=== PATIENT | female | born 1940 | race Caucasian/White ===

== ENCOUNTER 2016-12-09 09:54 | Emergency (ER) | payer OTHER ==
[2016-12-09 10:07] VITALS: TEMP 98.2; BMI 20.2
--- NOTE | 2016-12-09 10:21 | PDOC ---
History of Present Illness - General Chief Complaint: Hematuria Time Seen by Provider: 12/09/16 09:58 - History of Present Illness Initial Comments: 12/09/16 10:21 76-year-old female with a prior history of kidney stones in 2013 Patient states that she had some left sided abdominal pain in early October and then developed hematuria in mid October She denies any vaginal bleeding, and states that the blood is definitely hematuria and not vaginal bleeding She was seen at [facility], but is unsure what her diagnosis was She did see a urologist, and had a stent placed, but does not know which side the stent is on She states that the stent is supposed to come out tomorrow with the [facility] urologist She states that she has been having hematuria since october, and initially took a week of Bactrim DS, which did not help, and then she was given a prescription for Cipro which she did not take She is complaining of some slight dysuria and some bladder spasms She denies any fevers or chills She denies any vaginal bleeding spotting or discharge She denies any vomiting or diarrhea She states that her left sided abdominal pain is gone She denies any abdominal pain at this time She denies any flank pain She denies any other complaints at this time, and the remainder of the review of systems is negative When questioned further about what studies and procedures she had at [facility], the patient was very vague and states that she wasn't sure Past History - Past Medical History Allergies/Adverse Reactions: Allergies Allergy/AdvReac Type Severity Reaction Status Date / Time trazodone Allergy Verified 12/09/16 09:56 Home Medications: Ambulatory Orders Ciprofloxacin HCl [Cipro] 500 mg PO BID 12/09/16 Famotidine 20 mg PO BID 12/09/16 Lamotrigine [Lamictal] 25 mg PO PRN PRN 12/09/16 Disorders: Yes (RENAL STONE) Psychiatric Problems: Yes (ANXIETY/DEPRESSION) - Psycho/Social/Smoking Cessation Hx Anxiety: Yes (DEPRESSION) Suicidal Ideation: No Smoking History: Never smoked Have you smoked in the past 12 months: No Information on smoking cessation initiated: No Hx Alcohol Use: No Drug/Substance Use Hx: No Substance Use Type: None Review of Systems - Review of Systems Able to Perform ROS?: Yes Comments:: 12/09/16 10:24 12 point review of systems is as per history of present illness and otherwise negative *Physical Exam - Vital Signs Last Vital Signs Temp Pulse Resp BP Pulse Ox 98.2 F 108 H 16 174/92 97 12/09/16 09:56 12/09/16 09:56 12/09/16 09:56 12/09/16 09:56 12/09/16 09:56 - Physical Exam Comments: 12/09/16 10:24 Physical exam Last Vital Signs Temp Pulse Resp BP Pulse Ox 98.2 F 108 H 16 174/92 97 12/09/16 09:56 12/09/16 09:56 12/09/16 09:56 12/09/16 09:56 12/09/16 09:56 GENERAL: The patient is awake, alert, and fully oriented, and in no apparent distress. HEAD: Normal with no signs of trauma. EYES: Sclera anicteric, conjunctiva normal ENT: Mucous membranes moist NECK: Normal range of motion, supple LUNGS: Breath sounds equal, clear to auscultation bilaterally. No wheezes, and no crackles. HEART: Regular rate and rhythm, normal S1 and S2 without murmur, rub or gallop. ABDOMEN: Soft, nontender, normoactive bowel sounds. No guarding, no rebound. No masses appreciated. The abdomen is completely soft and nontender There is a tiny bit of suprapubic pressure feeling on palpation There is no CVA tenderness EXTREMITIES: Normal range of motion, no edema. No clubbing or cyanosis. No cords, erythema, or tenderness. NEUROLOGICAL: Cranial nerves II through XII grossly intact. Normal speech, normal gait. PSYCH: Normal mood, normal affect. SKIN: Warm, Dry, normal turgor, no rashes or lesions noted. ED Treatment Course - LABORATORY CBC & Chemistry Diagram: 12/09/16 10:25 12/09/16 10:25 - RADIOLOGY Radiology Studies Ordered: Category Date Time Status ABDOMEN & PELVIS CT W/O CONTR [CT] Stat CT Scan 12/09/16 10:13 Ordered Medical Decision Making - Medical Decision Making 12/09/16 10:25 76-year-old female who is a vague historian, presents with hematuria, without vaginal bleeding 12/09/16 11:11 Laboratory Results - last 24 hr 01/25/17 01/25/17 01/25/17 10:07 10:25 10:25 WBC 6.3 D RBC 4.79 Hgb 12.6 Hct 39.0 MCV 81.5 MCHC 32.3 RDW 12.6 Plt Count 230 MPV 9.2 Sodium 139 Potassium 3.8 Chloride 105 Carbon Dioxide 28 Anion Gap 6 L BUN 18 D Creatinine 0.7 D Creat Clearance w eGFR > 60 Random Glucose 104 D Calcium 9.2 Total Bilirubin 0.2 D AST 21 ALT 13 Alkaline Phosphatase 57 Total Protein 6.6 Albumin 4.3 Urine Color Red Urine Appearance Bloody Urine pH 5.0 Ur Specific Sunshine 1.015 Urine Protein 3+ H Urine Glucose (UA) Trace Urine Ketones 1+ H Urine Blood 3+ H Urine Nitrite Negative Urine Bilirubin 3+ H Urine Urobilinogen 2.0 e.u/dl H Ur Leukocyte Esterase 3+ H Urine RBC >50 Urine WBC >50 Ur Epithelial Cells Few Amorphous Urates Few Urine Bacteria Many CT scan of the abdomen and pelvis Left-sided stent is noted in good position There are some tiny stone fragments There is a cyst in the lower pole of the right kidney Impression-bilateral nonobstructive nephrolithiasis with small cysts in the kidneys There is good position of the double J left ureteral stent noted 12/09/16 12:[address] Davis-patient's urologist at [phone] He is in the OR and not reachable at this time I spoke to his medical detail representative, and let her know that we gave the patient 1 g of Rocephin IV here in the emergency department I will fax all of today's results to him She is scheduled to come in tomorrow to have the stent removed Dr. Davis will decide at that time whether to continue antibiotics Will give 1 dose of Rocephin IV Patient has an appointment with Dr. Davis tomorrow for stent removal, and he can decide on further antibiotics at that time Urine culture was sent Patient now remembers that Dr. Davis did tell her that she may have blood in her urine as long as the stent is in Vital Signs - 24 hr 12/09/16 12/09/16 09:56 11:47 Temperature 98.2 F Pulse Rate 108 H Pulse Rate [ 73 Apical] Respiratory 16 18 Rate Blood Pressure 174/92 Blood Pressure 138/82 [Arm] O2 Sat by Pulse 97 97 Oximetry (%) Impression-hematuria with stent in place Patient has appointment for removal of stent tomorrow *DC/Admit/Observation/Transfer Diagnosis at time of Disposition: Hematuria - Discharge Dispostion Disposition: HOME Condition at time of disposition: Good - Patient Instructions Additional Instructions: Rest, increase fluid intake You got 1 dose of IV antibiotics here in the emergency department today We faxed all of your results to Dr. Grant's office Please keep your appointment with Dr. Davis in the office tomorrow for stent removal Dr. Davis will decide whether to give you further antibiotics Followup with your primary care physician in 24-48 hours Return immediately if you worsen in any way Take your medications as directed
[2016-12-09 10:29] LABS: URINE BILIRUBIN 3+ (NEGATIVE); URINE GLUCOSE (UA) Trace (NEGATIVE); URINE KETONE 1+ (NEGATIVE); URINE NITRITE Negative (NEGATIVE); URINE UROBILINOGEN 2.0 E.U/dl (0.2-1.0)
[2016-12-09 10:37] LABS: URINE APPEARANCE BLOODY; URINE BLOOD 3+ (NEGATIVE); URINE COLOR RED; URINE LEUK ESTERASE 3+ (NEGATIVE); URINE PROTEIN 3+ (NEGATIVE)
[2016-12-09 10:38] LABS: MCH 26.3 pg (25.7-33.7); MCHC 32.3 g/dl (32.0-36.0); MEAN CELL VOLUME 81.5 fl (80-96); MEAN PLT VOLUME 9.2 fl (7.5-11.1); PLATELET COUNT 230 K/MM3 (134-434); RDW 12.6 % (11.6-15.6); WHITE BLOOD COUNT 6.3 K/mm3 (4.0-10.0)
[2016-12-09 10:43] LABS: URINE RBC >50 /hpf (0-3)
[2016-12-09 10:44] LABS: URINE BACTERIA MANY /hpf (NEGATIVE); URINE WBC >50 (3-5)
[2016-12-09 10:48] LABS: ALBUMIN 4.3 g/dl (3.5-5.0); ALK PHOS 57 U/L (32-92); ANION GAP 6 (8-16); BILIRUBIN,TOTAL 0.2 mg/dl (0.2-1.0); CALCIUM 9.2 mg/dl (8.4-10.2); CO2 28 mmol/L (22-28); CREATININE 0.7 mg/dl (0.6-1.3); GLUCOSE,RANDOM 104 mg/dl (74-106); SGOT/AST 21 U/L (10-42); SGPT/ALT 13 U/L (10-40); TOT PROT 6.6 g/dl (6.4-8.3)
[2016-12-09 11:48] VITALS: BP 138/82; PULSE 73
[2016-12-09] MEDS ORDERED: CEFTRIAXONE 1 GM in DEXTROSE 5%-WATER - 50 ML IVPB ONE (12:35)
[2016-12-09] MEDS ORDERED: cefTRIAXone SODIUM 1 GM VIAL ONE (12:35)
== END 2016-12-09 13:40 | disposition home or self-care (01) ==
LOC: FER 09:54
DX: R31.9 Hematuria, unspecified (principal); F41.8 Other specified anxiety disorders; Z87.442 Personal history of urinary calculi
CPT/HCPCS: 36415; 74176-TC; 80053; 81003; 81015; 85027; 87086; 96365; 99282-25

== ENCOUNTER 2018-01-22 00:55 | Emergency (ER) | payer OTHER, MEDICARE ==
[2018-01-22 01:05] VITALS: BP 159/80; PULSE 98; TEMP 98.6; BMI 18.8
--- NOTE | 2018-01-22 01:21 | PDOC ---
History of Present Illness - General Chief Complaint: Ingestion Stated Complaint: INGESTED WRONG MED CREAM Time Seen by Provider: 01/22/18 01:00 - History of Present Illness Initial Comments: This 77-year-old woman with a history of depression and leukoplakia oral mucous membranes but no other significant past medical history presents BIBA after accidentally ingesting small amount of mupirocin cream. The patient applies clobetasol gel to the leukoplakia in her mouth prior to going to bed at night. 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 The patient states that she rinsed her mouth immediately but thought that there was a red rash around her mouth afterwards. She states that she "panicked" and called EMS after she read warnings about rash development after mupirocin use. She denies throat pain, difficulty swallowing, bleeding, sensation of foreign body in her throat. She is able to speak without difficulty and has no hypersalivation/drooling. She denies shortness of breath/wheezing or any other rash currently Past History - Past Medical History Allergies/Adverse Reactions: Allergies Allergy/AdvReac Type Severity Reaction Status Date / Time trazodone Allergy Verified 01/22/18 00:58 Home Medications: Ambulatory Orders Mupirocin 15 gm TP PRN 01/22/18 COPD: No Psychiatric Problems: Yes - Suicide/Smoking/Psychosocial Hx Smoking History: Never smoked Have you smoked in the past 12 months: No Hx Alcohol Use: No Drug/Substance Use Hx: No Substance Use Type: None Review of Systems - Review of Systems Able to Perform ROS?: Yes Comments:: 12 point review of systems is negative except for what is noted in the history of present illness *Physical Exam - Vital Signs Last Vital Signs Temp Pulse Resp BP Pulse Ox 98.6 F 98 H 18 159/80 98 01/22/18 01:00 01/22/18 01:00 01/22/18 01:00 01/22/18 01:00 01/22/18 01:00 - Physical Exam Comments: GENERAL: Elderly female, alert and oriented 3, appearing nervous but in no acute distress HEAD: Normal with no signs of trauma. EYES: PERRLA, EOMI, sclera anicteric, conjunctiva clear. ENT: Ears normal, nares patent, oropharynx clear without exudates. Moist mucous membranes. No oral cavity ulcerations/lacerations/abrasions or other evidence of acute injury NECK: Normal range of motion, supple without lymphadenopathy, JVD, or masses. LUNGS: Breath sounds equal, clear to auscultation bilaterally. No wheezes, and no crackles. HEART:Regular rate and rhythm, normal S1 and S2 without murmur, rub or gallop. SKIN: Warm, Dry, normal turgor, no rashes or lesions noted. Medical Decision Making - Medical Decision Making This 77-year-old woman presents after accidentally ingesting a small amount of mupirocin cream just prior to presentation. Exam is normal without evidence of any irritation/injury to her mouth/oropharynx. The patient was able to drink 8 ounces of water without difficulty; she had no subsequent nausea or abdominal discomfort. Patient will be discharged with instructions to drink plenty of water and eat normally tomorrow. She should return if she notices any discomfort in her throat or subsequent nausea/abdominal discomfort. Her follow-up should be with her PMD as scheduled *DC/Admit/Observation/Transfer Diagnosis at time of Disposition: Accidental drug ingestion Qualifiers: Encounter type: initial encounter Qualified Code(s): T50.901A - Poisoning by unspecified drugs, medicaments and biological substances, accidental ( unintentional), initial encounter - Discharge Dispostion Disposition: HOME Condition at time of disposition: Stable - Referrals - Patient Instructions Printed Discharge Instructions: DI for Accidental Ingestion -- Adult Additional Instructions: continue to drink plenty of fluids Return to ER if you have any discomfort/irritation in your mouth or throat Follow-up with your doctor as scheduled - Post Discharge Activity
== END 2018-01-22 01:27 | disposition home or self-care (01) ==
LOC: FER 00:55
DX: T50.901A Poisoning by unspecified drugs, medicaments and biological substances, accidental (unintentional), initial encounter (principal); F32.9 Major depressive disorder, single episode, unspecified; K13.21 Leukoplakia of oral mucosa, including tongue
CPT/HCPCS: 99282-25

== ENCOUNTER 2019-01-18 03:56 | Emergency (ER) | payer OTHER, MEDICARE ==
[2019-01-18 04:06] VITALS: PULSE 100; TEMP 97.7; BMI 21.2
--- NOTE | 2019-01-18 04:07 | PDOC ---
History of Present Illness - General Chief Complaint: Pain, Acute Stated Complaint: FELT SOMETHING POP IN HER HEAD, C/O SORENESS VOMIT Time Seen by Provider: 01/18/19 04:02 History Source: Patient Exam Limitations: No Limitations - History of Present Illness Initial Comments: 01/18/19 04:07 This is a 78-year-old female brought in by EMS for evaluation of a sensation that something popped in her head and that she was nauseous had some vomiting and diarrhea. Patient said symptoms have all now resolved. Patient denies any headache, shortness of breath, nausea, fevers or chills, neck stiffness or any other complaints. Patient is otherwise healthy and takes no medications. Allergies: None Past Medical History: none Social history: Lives with family. No smoking. No alcohol. No illicit drugs. Surgical history: None General: No fevers or chills, no weakness, no weight loss HEENT: No change in vision. No sore throat,. No ear pain CardioVascular: no chest discomfort. No shortness of breath Respiratory:No cough, or wheezing. Gastrointestinal: + nausea, +vomited X1, +diarrhea no constipation, No rectal bleeding Genitourinary: No dysuria, hematuria, or frequency Musculoskeletal: No joint or muscle pain or swelling Neurologic: No headache, vertigo, dizziness or loss of consciousness Psychiatric: nor depression Skin: No rashes or easy bruising Endocrine: no increased thirst or abnormal weight change Allergic: no skin or latex allergy All other systems reviewed and normal Exam: General: Well-nourished well-developed individual, no acute distress HEENT: Throat: Normal, tonsils normal, no erythema or exudate Neck: Supple, no meningeal signs, no lymphadenopathy Eyes::Pupils equal reactive and round, extraocular motion intact Chest: Nontender to palpation Cardiac: S1-S2 normal, regular rate and rhythm, no murmurs rubs or gallops Respiratory: Lungs clear to auscultation bilateral Abdomen: Soft, nondistended, normal bowel sounds, there is no tenderness on palpation diffusely Extremities: Warm, dry, no cyanosis, clubbing, or edema Skin: No rashes Neuro: Alert and oriented x3, CN II - XII intact, nonfocal exam with normal strength, normal sensation, normal reflexes, normal gait, Psych: Normal mood and affect 01/18/19 05:23 CAT scan negative for any acute pathology patient discharged home Past History - Past Medical History Allergies/Adverse Reactions: Allergies Allergy/AdvReac Type Severity Reaction Status Date / Time trazodone Allergy Verified 01/22/18 00:58 Home Medications: Ambulatory Orders NK [No Known Home Medication] 01/18/19 COPD: No Psychiatric Problems: Yes - Suicide/Smoking/Psychosocial Hx Smoking History: Never smoked Have you smoked in the past 12 months: No Hx Alcohol Use: No Drug/Substance Use Hx: No Substance Use Type: None *DC/Admit/Observation/Transfer Diagnosis at time of Disposition: Headache Qualifiers: Headache type: unspecified Headache chronicity pattern: acute headache Intractability: not intractable Qualified Code(s): R51 - Headache - Discharge Dispostion Disposition: HOME Condition at time of disposition: Stable Decision to Admit order: No - Referrals - Patient Instructions Additional Instructions: Return to the emergency department immediately with ANY new, persistent or worsening symptoms. Continue any medications as previously prescribed by your physician. You should follow up with your primary doctor as soon as possible regarding today's emergency department visit. . Please make sure your doctor reviews the results of your emergency evaluation. Thank you for coming to the Emergency Department today for your care. It was a pleasure to see you today. Please note that your evaluation is INCOMPLETE until you follow-up with your doctor. - Post Discharge Activity
[2019-01-18 05:27] VITALS: BP 170/88
== END 2019-01-18 05:28 | disposition home or self-care (01) ==
LOC: FER 03:56
DX: R51 Headache (principal); F99 Mental disorder, not otherwise specified
CPT/HCPCS: 70450-TC; 99281-25

== ENCOUNTER 2019-01-29 22:59 | Emergency (ER) | payer OTHER, MEDICARE ==
[2019-01-29 23:12] VITALS: BP 158/75; PULSE 102; TEMP 98.2; BMI 22.1
--- NOTE | 2019-01-29 23:16 | PDOC ---
History of Present Illness - General Chief Complaint: Redness To Affected Area Stated Complaint: REACTION TO MEDICATION Time Seen by Provider: 01/29/19 23:13 History Source: Patient Exam Limitations: No Limitations - History of Present Illness Initial Comments: 01/29/19 23:16 This is a 78-year-old female who comes in concerned that she may have blood poisoning. Patient was on an antibiotic and she thinks her legs are red and they feel a little bit warmer than usual. Patient denies any fevers or chills. Patient denies any increase in discomfort or pain. Patient denies any swelling or itching of the area. Patient otherwise can go see her doctor in a few hours from her doctor's office opens. Allergies: None Past Medical History: none Social history: Lives with family. No smoking. No alcohol. No illicit drugs. Surgical history: None General: No fevers or chills, no weakness, no weight loss HEENT: No change in vision. No sore throat,. No ear pain CardioVascular: no chest discomfort. No shortness of breath Respiratory:No cough, or wheezing. Gastrointestinal: no nausea, vomiting, diarrhea or constipation, No rectal bleeding Genitourinary: No dysuria, hematuria, or frequency Musculoskeletal: No joint or muscle pain or swelling Neurologic: No headache, vertigo, dizziness or loss of consciousness Psychiatric: nor depression Skin: No rashes or easy bruising, as per history of present illness Endocrine: no increased thirst or abnormal weight change Allergic: no skin or latex allergy All other systems reviewed and normal GENERAL: The patient is awake, alert, and fully oriented, in no acute distress. HEAD: Normal with no signs of trauma. EYES: Pupils equal, round and reactive to light, extraocular movements intact, sclera anicteric, conjunctiva clear. EXTREMITIES:atraumatic, Normal range of motion, no edema. NEUROLOGICAL: Normal speech, normal gait. PSYCH: Normal mood, normal affect. SKIN: Warm, Dry, normal turgor, no rashes or lesions noted. There is no increase in warmth or erythema than I'm able to discern. There is no tenderness on palpation. The extremities look normal to me. Past History - Past Medical History Allergies/Adverse Reactions: Allergies Allergy/AdvReac Type Severity Reaction Status Date / Time trazodone Allergy Verified 01/29/19 23:06 Home Medications: Ambulatory Orders NK [No Known Home Medication] 01/18/19 COPD: No HTN: Yes Psychiatric Problems: Yes (DEPRESSION) - Suicide/Smoking/Psychosocial Hx Smoking History: Never smoked Have you smoked in the past 12 months: No Information on smoking cessation initiated: No Hx Alcohol Use: No Drug/Substance Use Hx: No Substance Use Type: None *Physical Exam - Vital Signs Last Vital Signs Temp Pulse Resp BP Pulse Ox 98.2 F 102 H 16 158/75 99 01/29/19 23:08 01/29/19 23:08 01/29/19 23:08 01/29/19 23:08 01/29/19 23:08 Moderate Sedation - Procedure Monitoring Vital Signs: Procedure Monitoring Vital Signs Temperature 98.2 F 01/29/19 23:08 Pulse Rate 102 H 01/29/19 23:08 Respiratory Rate 16 01/29/19 23:08 Blood Pressure 158/75 01/29/19 23:08 O2 Sat by Pulse Oximetry (%) 99 01/29/19 23:08 *DC/Admit/Observation/Transfer Diagnosis at time of Disposition: Anxiety about health - Discharge Dispostion Disposition: HOME Condition at time of disposition: Stable Decision to Admit order: No - Referrals - Patient Instructions Additional Instructions: I see no indication tonight that there is anything to be concerned about regarding your legs and the redness that you perceive. Call your doctor's office in the morning and go see her doctor in the morning and have your doctor reevaluate you if you are still concerned. Return to the emergency department immediately with ANY new, persistent or worsening symptoms. Continue any medications as previously prescribed by your physician. You should follow up with your primary doctor as soon as possible regarding today's emergency department visit. . Please make sure your doctor reviews the results of your emergency evaluation. Thank you for coming to the Emergency Department today for your care. It was a pleasure to see you today. Please note that your evaluation is INCOMPLETE until you follow-up with your doctor. - Post Discharge Activity
== END 2019-01-29 23:24 | disposition home or self-care (01) ==
LOC: FER 22:59
DX: Z00.8 Encounter for other general examination (principal); F32.9 Major depressive disorder, single episode, unspecified; I10 Essential (primary) hypertension
CPT/HCPCS: 99281-25

== ENCOUNTER 2019-02-05 13:39 | Emergency (ER) | payer OTHER, MEDICARE ==
[2019-02-05 13:59] VITALS: TEMP 98; BMI 19.1
--- NOTE | 2019-02-05 14:11 | PDOC ---
History of Present Illness - General Chief Complaint: Chest Pain Stated Complaint: CHEST PAIN Time Seen by Provider: 02/05/19 13:52 History Source: Patient Exam Limitations: No Limitations - History of Present Illness Initial Comments: 02/05/19 14:06 78 y/o female with left sided chest and back pain today while attending to her activities. Patient has a hx of dementia and depression. Has been to ER 4x in last 2 weeks. No fall or trauma. No SOB. No N/V/D/C. No fever or chills. Denies traveling. Has not taken anything for the pain. Worse with movement and breathing. Severity: mild Associated Symptoms: denies: cough, fever/chills, nausea/vomiting, rash, shortness of breath Past History - Past Medical History Allergies/Adverse Reactions: Allergies Allergy/AdvReac Type Severity Reaction Status Date / Time trazodone Allergy Verified 01/29/19 23:06 Home Medications: Ambulatory Orders Lamotrigine 5 mg PO DAILY 02/05/19 COPD: No HTN: Yes Psychiatric Problems: Yes (DEPRESSION ANXIETY) - Suicide/Smoking/Psychosocial Hx Smoking History: Never smoked Have you smoked in the past 12 months: No Information on smoking cessation initiated: No Hx Alcohol Use: No Drug/Substance Use Hx: No Substance Use Type: None Review of Systems - Review of Systems Able to Perform ROS?: Yes Is the patient limited Armenian proficient: No Constitutional: No: Chills, Fever Respiratory: No: Cough, Shortness of Breath Cardiac (ROS): Yes: Chest Pain. No: Palpitations Musculoskeletal: Yes: Back Pain. No: Joint Pain, Muscle Pain Integumentary: No: Rash All Other Systems: Reviewed and Negative *Physical Exam - Vital Signs Last Vital Signs Temp Pulse Resp BP Pulse Ox 98 F 90 18 142/81 100 02/05/19 13:40 02/05/19 13:40 02/05/19 13:40 02/05/19 13:40 02/05/19 13:40 - Physical Exam General Appearance: Yes: Nourished, Appropriately Dressed. No: Apparent Distress, Disheveled, Mild Distress HEENT: positive: EOMI, MARLENE, Normal ENT Inspection, Normal Voice, Symmetrical, Pharynx Normal Neck: positive: Trachea midline, Normal Thyroid, Supple. negative: Tender, Rigid, Carotid bruit Respiratory/Chest: positive: Chest Tender (reproducible chest pain on palpation) , Lungs Clear, Normal Breath Sounds, Respiratory Distress Cardiovascular: positive: Regular Rhythm, Regular Rate, S1, S2. negative: Edema , JVD, Murmur Vascular Pulses: Femoral (R): 4+, Femoral (L): 4+, Carotid (R): 4+, Carotid (L) : 4+, Dorsalis-Pedis (R): 4+, Doralis-Pedis (L): 4+ Gastrointestinal/Abdominal: positive: Normal Bowel Sounds, Flat, Soft. negative : Tender, Organomegaly, Pulsatile Mass Lymphatic: negative: Adenopathy, Tenderness, Other Musculoskeletal: positive: Normal Inspection, Muscle Spasm (tenderness to left upper back on palpation, no shingles noted, no swelling, no spinous process tenderness). negative: CVA Tenderness Extremity: positive: Normal Capillary Refill, Normal Inspection, Normal Range of Motion, Other (left foot with healing ecchymosis to dorsum of foot, varicose veins noted, no calf tenderness noted b/l). negative: Tender, Calf Tenderness Integumentary: positive: Normal Color, Dry, Warm Neurologic: positive: radiotelegrapher II-XII NML intact, Fully Oriented, Alert, Normal Mood/ Affect, Normal Response, Motor Strength 5/5 Moderate Sedation - Procedure Monitoring Vital Signs: Procedure Monitoring Vital Signs Temperature 98 F 02/05/19 13:40 Pulse Rate 90 02/05/19 13:40 Respiratory Rate 18 02/05/19 13:40 Blood Pressure 142/81 02/05/19 13:40 O2 Sat by Pulse Oximetry (%) 100 02/05/19 13:40 Heart Score/ECG Review - History History: Slightly suspicious - Electrocardiogram EKG: Normal - Age Age: >/= 65 - Risk Factors Risk Factors Heart Score: Yes Hx Hypertension Based on the list above the patient has:: No risk factors known - Troponin Troponin: </= normal limit - Score Heart Score - Total: 2 - ECG Intrepretation Rhythm: Regular Rhythm Comment:: 02/05/19 14:12 heart rate at 95 No STEMI - [place]: Normal - P and [place] Prominent R with upright T in V1 (true posterior MS): No - ST and T Early Repolarization: No Non Specific ST-T Wave changes: No - ECG Impressions Normal ECG: Yes ED Treatment Course - LABORATORY CBC & Chemistry Diagram: 02/05/19 14:05 02/05/19 14:05 - ADDITIONAL ORDERS Additional order review: 02/05/19 15:29 Pt is feeling better, will discharge home with chest wall syndrome Motrin, rest If worsen return to ER Patient is in agreement with plan CXR NAD EKG: NSR 02/05/19 16:11 CBC machine is being calabrated but not affecting discharge dispo - RADIOLOGY Radiology Studies Ordered: Category Date Time Status CHEST PA & LAT [RAD] Stat Radiology 02/05/19 14:05 Ordered *DC/Admit/Observation/Transfer Diagnosis at time of Disposition: Chest wall syndrome - Discharge Dispostion Disposition: HOME Condition at time of disposition: Stable Decision to Admit order: No - Referrals - Patient Instructions Printed Discharge Instructions: DI for Costochondritis Additional Instructions: Motrin, rest If worsen return to ER - Post Discharge Activity
[2019-02-05 14:51] LABS: ALBUMIN 4.8 g/dl (3.4-5.0); ALK PHOS 68 U/L (45-117); ANION GAP 10 MMOL/L (8-16); BILIRUBIN,TOTAL 0.8 mg/dl (0.2-1); BLOOD UREA NITROGEN 19 mg/dl (7-18); CALCIUM 9.5 mg/dl (8.5-10); CHLORIDE 99 mmol/L (98-107); CO2 28 mmol/L (21-32); CREATININE 0.7 mg/dl (0.55-1.3); GLUCOSE,RANDOM 93 mg/dl (74-106); POTASSIUM 3.8 mmol/L (3.5-5.1); SGOT/AST 26 U/L (15-37); SGPT/ALT 18 U/L (13-61); SODIUM 137 mmol/L (136-145); TOT PROT 7.3 g/dl (6.4-8.2)
[2019-02-05 16:15] VITALS: BP 159/81; PULSE 84
[2019-02-05 17:28] LABS: BASO % 0.6 % (0-2.0); EOS % 0.7 % (0-4.5); HEMATOCRIT 42.3 % (32.4-45.2); HEMOGLOBIN 14.5 GM/dL (10.7-15.3); LYMPH % 29.2 % (8-40); MCH 28.3 pg (25.7-33.7); MCHC 34.2 g/dl (32.0-36.0); MEAN CELL VOLUME 82.7 fl (80-96); MEAN PLT VOLUME 9.8 fl (7.5-11.1); MONO % 9.9 % (3.8-10.2); NEUT % 59.6 % (42.8-82.8); RBC 5.11 M/mm3 (3.60-5.2); RDW 14.8 % (11.6-15.6); WHITE BLOOD COUNT 5.3 K/mm3 (4.0-10.0)
[2019-02-05 18:27] LABS: PLATELET COUNT 341 K/MM3 (134-434); PLATELET ESTIMATE ADEQUATE
--- NOTE | 2019-02-05 23:45 | EKG ---
Test Reason : Blood Pressure : / mmHG Vent. Rate : 095 BPM Atrial Rate : 095 BPM P-R Int : 102 ms QRS Dur : 070 ms QT Int : 364 ms P-R-T Axes : 000 -21 054 degrees QTc Int : 457 ms SINUS RHYTHM WITH SHORT MS OTHERWISE NORMAL ECG WHEN COMPARED WITH ECG OF 23-MAR-2014 03:29, MS INTERVAL HAS DECREASED Confirmed by PATI CHANDLER MD ([id number]) on 02/05/2019 11:44:31 PM Referred By: TAVON GAN Confirmed By:PATI CHANDLER MD
== END 2019-02-05 16:41 | disposition home or self-care (01) ==
LOC: FER 13:39
DX: R07.1 Chest pain on breathing (principal); I10 Essential (primary) hypertension; F41.8 Other specified anxiety disorders
CPT/HCPCS: 36415; 71046-TC-FY; 80053; 84484; 85025; 93005; 99283-25

== ENCOUNTER 2019-08-07 19:09 | Emergency (ER) | payer OTHER, MEDICARE ==
[2019-08-07 19:18] VITALS: BP 155/93; PULSE 100; TEMP 98.2; BMI 17.7
[2019-08-07] MEDS ORDERED: ACETAMINOPHEN 500 MG TABLET (FP) PO ONE (19:18)
[2019-08-07] MEDS ORDERED: ACETAMINOPHEN 500 MG TABLET (FP) ONE (19:34)
--- NOTE | 2019-08-07 20:25 | PDOC ---
Documentation entered by Farooq Malhotra SCRIBE, acting as scribe for Debi Soares MD. Debi Soares MD: This documentation has been prepared by the [facility], SCRIBE, under my direction and personally reviewed by me in its entirety. I confirm that the documentation accurately reflects all work, treatment, procedures, and medical decision making performed by me. History of Present Illness - General Chief Complaint: Pain, Acute Stated Complaint: SUDDEN ONSET OF HEAD PAIN Time Seen by Provider: 08/07/19 19:12 History Source: Patient Exam Limitations: No Limitations - History of Present Illness Initial Comments: 08/07/19 19:21 The patient is an 79 year old female, with a significant PMH of HTN, renal stones, depression and anxiety who presents to the emergency department with sudden onset of head pain. Patient states she does not recall any head injuries or head trauma, however, she thinks something might have fell on her head. patient denies LOC. PAST SURGICAL HISTORY: no significant history FAMILY HISTORY: no pertinent history MEDICATIONS: reviewed ALLERGIES: As per nursing notes 08/07/19 20:24 Assessment and plan: This is an 79-year-old female comes in complaining of pain on the top of her head. Patient had a head CT that was read as negative for any acute intracranial pathology. There is no evidence on exam of trauma. Patient discharged home will follow-up with her primary care doctor patient told she can take Tylenol Past History - Past Medical History Allergies/Adverse Reactions: Allergies Allergy/AdvReac Type Severity Reaction Status Date / Time trazodone Allergy Verified 08/07/19 19:11 Home Medications: Ambulatory Orders Lamotrigine [Lamictal] 5 mg PO DAILY 08/07/19 COPD: No Disorders: Yes (RENAL STONE) HTN: Yes Psychiatric Problems: Yes (DEPRESSION ANXIETY) - Suicide/Smoking/Psychosocial Hx Smoking History: Former smoker Have you smoked in the past 12 months: No Information on smoking cessation initiated: No Hx Alcohol Use: No Drug/Substance Use Hx: No Substance Use Type: None Review of Systems - Review of Systems Able to Perform ROS?: Yes Comments:: 08/07/19 19:22 General: No fevers or chills, no weakness, no weight loss HEENT: (+) head pain. No change in vision. No sore throat,. No ear pain CardioVascular: No chest pain or shortness of breath Respiratory:No cough, or wheezing. Gastrointestinal: no nausea, vomiting, diarrhea or constipation, No rectal bleeding Genitourinary: No dysuria, hematuria, or frequency Musculoskeletal: No joint or muscle pain or swelling Neurologic: No headache, vertigo, dizziness or loss of consciousness Psychiatric: nor depression Skin: No rashes or easy bruising Endocrine: no increased thirst or abnormal weight change Allergic: no skin or latex allergy All other systems reviewed and normal *Physical Exam - Vital Signs Last Vital Signs Temp Pulse Resp BP Pulse Ox 98.2 F 100 H 18 155/93 98 08/07/19 19:13 08/07/19 19:13 08/07/19 19:13 08/07/19 19:13 08/07/19 19:13 - Physical Exam Comments: 08/07/19 19:22 GENERAL: The patient is awake, alert, and fully oriented, in no acute distress. HEAD: (+) TTP on top R portion of scalp. no signs of trauma. No contusion, no abrasions. EYES: Pupils equal, round and reactive to light, extraocular movements intact, sclera anicteric, conjunctiva clear. EXTREMITIES: Normal range of motion, no edema. NEUROLOGICAL: Normal speech, normal gait. PSYCH: Normal mood, normal affect. SKIN: Warm, Dry, normal turgor, no rashes or lesions noted. ED Treatment Course - RADIOLOGY Radiology Studies Ordered: Category Date Time Status HEAD CT WITHOUT CONTRAST [CT] Stat CT Scan 08/07/19 19:18 Completed - Medications Given in the ED: ED Medications Discontinued Medications Generic Name Dose Route Start Last Admin Trade Name Freq PRN Reason Stop Dose Admin Acetaminophen 1,000 mg 08/07/19 19:18 08/07/19 19:36 Tylenol - PO 08/07/19 19:19 1,000 mg ONCE ONE Administration *DC/Admit/Observation/Transfer Diagnosis at time of Disposition: Pain of scalp - Discharge Dispostion Disposition: HOME Condition at time of disposition: Stable Decision to Admit order: No - Referrals - Patient Instructions Additional Instructions: U can take Tylenol as needed for pain Return to the emergency department immediately with ANY new, persistent or worsening symptoms. Continue any medications as previously prescribed by your physician. You should follow up with your primary doctor as soon as possible regarding today's emergency department visit. . Please make sure your doctor reviews the results of your emergency evaluation. Thank you for coming to the Emergency Department today for your care. It was a pleasure to see you today. Please note that your evaluation is INCOMPLETE until you follow-up with your doctor. - Post Discharge Activity
== END 2019-08-07 20:42 | disposition home or self-care (01) ==
LOC: FER 19:09
DX: R51 Headache (principal); F41.8 Other specified anxiety disorders; I10 Essential (primary) hypertension; N20.0 Calculus of kidney; Z87.891 Personal history of nicotine dependence; Z88.9 Allergy status to unspecified drugs, medicaments and biological substances
CPT/HCPCS: 70450-TC; 99281-25

== ENCOUNTER 2019-08-12 14:59 | Emergency (ER) | payer OTHER, MEDICARE ==
[2019-08-12 15:20] VITALS: TEMP 98.9; BMI 18.6
--- NOTE | 2019-08-12 15:33 | PDOC ---
History of Present Illness - General Chief Complaint: Pain Stated Complaint: fast pulse, left foot pain Time Seen by Provider: 08/12/19 15:01 History Source: Patient Exam Limitations: No Limitations - History of Present Illness Initial Comments: 08/12/19 15:28 CHIEF COMPLAINT: #1) twisted left foot in the garden 2 days ago, now swollen with discomfort #2) heartbeat sounds fast to her in her ears HISTORY OF PRESENT ILLNESS: 79-year-old female with history of hypertension, anxiety, and depression. Patient states that outside in her garden 2 days ago and she turned, twisting her left foot and ankle. Since that time her lateral ankle has been a bit swollen. She is able to walk, with mild discomfort, but it does seem to be getting better. Patient has history of hypertension, noncompliant with her medication, doesn't recall the name of the medication. She states she did not take her medication recently, and she feels that her heart is beating fast. She is not aware of the heartbeat in her chest, there is no chest discomfort, but she does hear her heart beating in her ears. She tried to count and felt that it was going at 120 bpm. She became concerned and decided to come to the emergency room. There is no chest pain, no shortness of breath, no palpitations in the chest, no dizziness, and no loss of consciousness. REVIEW OF SYSTEMS: GENERAL/CONSTITUTIONAL: No fever or chills. No weakness. No weight change. HEAD, EYES, EARS, NOSE AND THROAT: No change in vision. No ear pain or discharge. No sore throat. CARDIOVASCULAR: No chest pain or shortness of breath. RESPIRATORY: No cough, wheezing, or hemoptysis. GASTROINTESTINAL: No nausea, vomiting, diarrhea or constipation. No rectal bleeding. GENITOURINARY: No dysuria, frequency, or change in urination. MUSCULOSKELETAL: Positive left foot and ankle discomfort with mild swelling. No other injuries. SKIN AND BREASTS: No rash or easy bruising. NEUROLOGIC: No headache, vertigo, loss of consciousness, or loss of sensation. Patient complains of being able to hear her heart beating fast in her ears. PSYCHIATRIC: No depression or anxiety. ENDOCRINE: No increased thirst. No abnormal weight change. HEMATOLOGIC/LYMPHATIC: No anemia, easy bleeding, or history of blood clots. ALLERGIC/IMMUNOLOGIC: No hives or skin allergy. No latex allergy. Past History - Past Medical History Allergies/Adverse Reactions: Allergies Allergy/AdvReac Type Severity Reaction Status Date / Time trazodone Allergy Verified 08/12/19 15:00 Home Medications: Ambulatory Orders Lamotrigine 25 mg PO DAILY 08/12/19 COPD: No Disorders: Yes (RENAL STONE) HTN: Yes Psychiatric Problems: Yes (DEPRESSION ANXIETY) - Psycho Social/Smoking Cessation Hx Smoking History: Never smoked Have you smoked in the past 12 months: No Information on smoking cessation initiated: No Hx Alcohol Use: No Drug/Substance Use Hx: No Substance Use Type: None *Physical Exam - Vital Signs Last Vital Signs Temp Pulse Resp BP Pulse Ox 98.9 F 107 H 20 162/86 98 08/12/19 15:00 08/12/19 15:00 08/12/19 15:00 08/12/19 15:00 08/12/19 15:00 - Physical Exam Comments: 08/12/19 15:31 GENERAL: The patient is awake, alert, and fully oriented, in no acute distress. She is a bit forgetful regarding medication names. HEAD: Normal with no signs of trauma. EYES: Pupils equal, round and reactive to light, extraocular movements intact, sclera anicteric, conjunctiva clear. ENT: Ears normal, nares patent, oropharynx clear without exudates. Moist mucous membranes. NECK: Normal range of motion, supple without lymphadenopathy, JVD, or masses. LUNGS: Breath sounds equal, clear to auscultation bilaterally. No wheezes, and no crackles. HEART: Regular rate and rhythm, normal S1 and S2 without murmur, rub or gallop. ABDOMEN: Soft, nontender, normoactive bowel sounds. No guarding, no rebound. No masses. EXTREMITIES: There is some swelling over the lateral aspect of the left foot and ankle. There is mild erythema. There is mild tenderness to this region. No point bony tenderness. Pulses are normal. NEUROLOGICAL: Cranial nerves II through XII grossly intact. Normal speech, normal gait. PSYCH: Normal mood, normal affect. SKIN: Warm, Dry, normal turgor, no rashes or lesions noted. Heart Score/ECG Review - ECG Impressions Comment:: 08/12/19 15:34 Twelve-lead EKG shows normal sinus rhythm at a rate of 95 bpm. The axis is normal. The intervals are normal. There are no acute ST elevations or depressions. There are no abnormal T waves. Impression: Normal 12-lead EKG ED Treatment Course - RADIOLOGY Radiology Studies Ordered: Category Date Time Status ANKLE & FOOT-LEFT* [RAD] Stat Radiology 08/12/19 15:16 Ordered Medical Decision Making - Medical Decision Making 08/12/19 15:54 79-year-old female presents with 2 complaints, left foot and ankle discomfort after twisting her foot 2 days ago, and awareness of a rapid heartbeat. She has no cardiac symptoms other than awareness of her heartbeat. On examination, she has clear lungs and a normal heartbeat, no gallop, no murmur , no tachycardia. Abdomen is benign and extremities reveal mild diffuse tenderness over the lateral ankle and foot without point bony tenderness. She is ambulatory with a normal gait. No limping. Twelve-lead EKG was performed and shows normal sinus rhythm at 95 bpm. The EKG is normal. 5 views of the left ankle and foot were performed. There is no fracture or dislocation on my preliminary review. Radiology follow-up procedure was activated at the time of discharge tending final radiology review. Final impression: Left ankle and foot sprain. Normal cardiac evaluation. Discharge - Discharge Information Problems reviewed: Yes Clinical Impression/Diagnosis: Tachycardia Ankle sprain Qualifiers: Encounter type: initial encounter Involved ligament of ankle: unspecified ligament Laterality: left Qualified Code(s): S93.402A - Sprain of unspecified ligament of left ankle, initial encounter Condition: Good Disposition: HOME - Admission No - Follow up/Referral - Patient Discharge Instructions Patient Printed Discharge Instructions: DI for Ankle Sprain Additional Instructions: Today you were evaluated for a rapid heartbeat and for twisting your left foot and ankle. The x-ray shows no broken bones. Your diagnosis is an ankle sprain. Elevate the ankle and apply ice packs as needed. No wrap is needed as the swelling is minimal. Your cardiac examination and EKG were normal. There are no cardiac issues of concern at this time. Follow-up with your primary care physician next week. Return to the emergency department for any severe or progressive symptoms. - Post Discharge Activity
[2019-08-12 16:00] VITALS: BP 155/81; PULSE 96
--- NOTE | 2019-08-14 13:23 | EKG ---
Test Reason : Blood Pressure : / mmHG Vent. Rate : 095 BPM Atrial Rate : 095 BPM P-R Int : 180 ms QRS Dur : 064 ms QT Int : 378 ms P-R-T Axes : 070 -16 063 degrees QTc Int : 475 ms NORMAL SINUS RHYTHM NORMAL ECG WHEN COMPARED WITH ECG OF 05-FEB-2019 13:58, NO SIGNIFICANT CHANGE WAS FOUND Confirmed by ESTEPHANIE ALONSO MD ([id number]) on 08/14/2019 1:23:02 PM Referred By: ELDER ALCARAZ Confirmed By:ESTEPHANIE ALONSO MD
== END 2019-08-12 16:19 | disposition home or self-care (01) ==
LOC: FER 14:59
DX: S93.402A Sprain of unspecified ligament of left ankle, initial encounter (principal); R26.2 Difficulty in walking, not elsewhere classified; Z88.8 Allergy status to other drugs, medicaments and biological substances; I10 Essential (primary) hypertension; F41.8 Other specified anxiety disorders; N20.0 Calculus of kidney; X58.XXXA Exposure to other specified factors, initial encounter; Y93.89 Activity, other specified; Y92.89 Other specified places as the place of occurrence of the external cause
CPT/HCPCS: 73610-TC-LT-FY; 73630-TC-LT; 93005; 99282-25

== ENCOUNTER 2019-08-24 20:23 | Observation (INO) | payer OTHER, MEDICARE ==
[2019-08-24 21:25] LABS: BASO % 0.7 % (0-2.0); EOS % 0.4 % (0-4.5); HEMATOCRIT 41.7 % (32.4-45.2); HEMOGLOBIN 13.8 GM/dl (10.7-15.3); LYMPH % 20.9 % (8-40); MCH 27.2 pg (25.7-33.7); MEAN CELL VOLUME 82.5 fl (80-96); MEAN PLT VOLUME 9.2 fl (7.5-11.1); MONO % 9.6 % (3.8-10.2); NEUT % 68.4 % (42.8-82.8); PLATELET COUNT 348 K/MM3 (134-434); RBC 5.05 M/mm3 (3.60-5.2); RDW 13.4 % (11.6-15.6); WHITE BLOOD COUNT 7.3 K/mm3 (4.0-10.8)
[2019-08-24 21:35] LABS: INR 0.98 (0.82-1.09)
[2019-08-24 21:40] LABS: ALBUMIN 4.1 g/dl (3.4-5.0); BILIRUBIN,TOTAL 0.4 mg/dl (0.2-1); CALCIUM 8.8 mg/dl (8.5-10); CREATININE 0.8 mg/dl (0.55-1.3); MAGNESIUM 2.5 mg/dL (1.8-2.4); POTASSIUM 4.6 mmol/L (3.5-5.1); TOT PROT 6.7 g/dl (6.4-8.2)
--- NOTE | 2019-08-24 22:32 | PDOC ---
Documentation entered by Laureano Cody SCRIBE, acting as scribe for Evelyn Jonas MD. Evelyn Jonas MD: This documentation has been prepared by the [facility], SCRIBE, under my direction and personally reviewed by me in its entirety. I confirm that the documentation accurately reflects all work, treatment, procedures, and medical decision making performed by me. History of Present Illness - General Chief Complaint: Chest Pain Stated Complaint: CHEST PAIN Time Seen by Provider: 08/24/19 20:28 History Source: Patient Exam Limitations: No Limitations - History of Present Illness Initial Comments: 08/24/19 21:31 HPI The patient is an 79 year old female with a past medical history of HTN, depression, and anxiety presenting with chest pain. The patient reports that her chest pain began around 3:30 PM today and describes it as substernal, nonradiating, deep, and sharp. She notes that it got better with chest massages and returned after she stopped massaging. She states that this occurred 3-4 times and then the pain fully resolved. She also notes some hand tingling which she attributes to old age. She denies any strenuous activity. denies exacerbating factors. no trauma. no cough or congestion or recent Denies fever, chills, SOB, palpitation, dizziness, weakness, N, V, D, abdominal pain, bladder and bowel problems, focal weakness/paresthesias, leg swelling/pain , rash. No sick contacts or travel. No new changes in medications. No suspicious food intake Allergies: trazodone Past Medical History/PSH: see above. Appendectomy. Social history: Lives with family. No tobacco, ETOH or drug use. Meds: as documented in EMR Family history: no family history of sudden deaths/cardiac disease. PMD: Kendra Perez Review of systems Constitutional: no fevers or chills. No weakness HEENT: no headache or dizziness. No congestion. No visual/hearing disturbances. CVS: no syncope. +chest pain Resp: no sob. No cough. Gastrointestinal: no abdominal pain, nausea, vomiting, diarrhea. Genitourinary: no urinary sx, hematuria. MUSCULOSKELETAL: No joint pain and swelling. No neck or back pain. SKIN: no redness or skin changes, no discharge, no rash. No wounds. Hematologic: no easy bruising/bleeding. NEUROLOGIC: No headache, dizziness, LOC or altered mental status. No weakness, numbness, +tingling. Psych: no anxiety or depression Allergic/Immunologic: no allergies All other systems reviewed and negative, or as documented in HPI. Physical exam General: Well appearing, awake and alert, NAD. HEENT: NCAT, PERRL, EOMI, clear conjunctiva, anicteric, moist mucus membranes, clear oropharynx, no oral lesions.. Neck: neck supple, FROM Resp: CTAB, normal and even respirations, no respiratory distress CVS: RRR, no murmurs, 2+ peripheral pulses throughout, no peripheral edema Abdomen: soft, NTND, no rebound or guarding. No CVAT. Back: nontender, normal inspection and ROM MSK: +left anterior chest wall tenderness worse with palpation. no edema, FOLRES x4, ROM intact. No clubbing or cyanosis. normal bulk and tone. Extremities: no calf tenderness Neuro: alert, oriented appropriately; no focal neurologic deficits Psych: Calm and cooperative Skin: warm and well perfused, cap refill <2 sec, normal color 08/24/19 23:00 Past History - Past Medical History Allergies/Adverse Reactions: Allergies Allergy/AdvReac Type Severity Reaction Status Date / Time trazodone Allergy Verified 08/24/19 20:25 Home Medications: Ambulatory Orders Bp Pill 1 tab PO DAILY 08/24/19 Lamotrigine [Lamictal] mg PO DAILY 08/24/19 COPD: No Disorders: Yes (RENAL STONE) HTN: Yes Psychiatric Problems: Yes (DEPRESSION ANXIETY) - Surgical History Appendectomy: Yes - Psycho Social/Smoking Cessation Hx Smoking History: Former smoker Have you smoked in the past 12 months: No Information on smoking cessation initiated: No Hx Alcohol Use: (occasional) Drug/Substance Use Hx: No Substance Use Type: None *Physical Exam - Vital Signs Last Vital Signs Temp Pulse Resp BP Pulse Ox 97.9 F 84 18 151/69 98 08/24/19 20:23 08/24/19 20:23 08/24/19 20:23 08/24/19 20:23 08/24/19 20:23 Heart Score/ECG Review - History History: Slightly suspicious - Electrocardiogram EKG: Non specific repolarization disturbance - Age Age: >/= 65 - Risk Factors Risk Factors Heart Score: Yes Hx Hypertension Based on the list above the patient has:: 1-2 risk factors - Troponin Troponin: </= normal limit - Score Heart Score - Total: 4 #1 ECG reviewed & interpreted by me at: 20:35 General ECG Interpretation: Sinus Rhythm, Normal Rate, Normal Intervals Compared to previous ECG there are: No significant change 08/24/19 22:31 EKG normal sinus rhythm at 95 bpm, no interval abnormalities, narrow QRS, ST and T wave segments and morphology normal. Nonspecific T wave abnormalities ED Treatment Course - LABORATORY CBC & Chemistry Diagram: 08/24/19 21:05 08/24/19 21:05 - ADDITIONAL ORDERS Additional order review: 08/24/19 21:05 RBC 5.05 MCV 82.5 MCHC 33.0 RDW 13.4 MPV 9.2 Neutrophils % 68.4 Lymphocytes % 20.9 Monocytes % 9.6 Eosinophils % 0.4 Basophils % 0.7 - RADIOLOGY Radiology Studies Ordered: Category Date Time Status CHEST PA & LAT [RAD] Stat Radiology 08/24/19 20:28 Taken Medical Decision Making - Medical Decision Making 08/24/19 22:49 Vital Signs Temp Pulse Resp BP Pulse Ox 97.9 F 84 18 151/69 98 08/24/19 20:23 08/24/19 20:23 08/24/19 20:23 08/24/19 20:23 08/24/19 20:23 DDx chest pain: ACS, coronary vasospasm, NSTEMI, arrhythmia, unstable angina, PE , dissection, PUD, esophageal spasm, GERD, gastritis, costochondritis, pneumonia , pleurisy, pericarditis/myocarditis. dehydration, electrolyte/metabolic derangements. VS reviewed wnl labs unremarkable, initial trop neg cxr clear heart score 4 based on age, and HTN, female, moderate risk for ACS,MACE based on score. EKG change new TWI in V1-2, change from prior EKG in 07/2019 ASA given admit tele for obs/chest pain, serial EKG/trop, r/o ACS hospitalist service. s/o [employer] Prabhakar 08/24/19 22:50 08/24/19 23:05 08/24/19 23:52 Discharge - Discharge Information Problems reviewed: Yes Clinical Impression/Diagnosis: Chest pain Qualifiers: Chest pain type: unspecified Qualified Code(s): R07.9 - Chest pain, unspecified Condition: Stable - Admission Yes - Follow up/Referral Referrals: Kendra Perez [Primary Care Provider] - - Patient Discharge Instructions - Post Discharge Activity
[2019-08-24] MEDS ORDERED: ASPIRIN 81 MG CHEWABLE TABLETS PO ONE (22:50)
[2019-08-24] MEDS ORDERED: ASPIRIN 81 MG CHEWABLE TABLETS ONE (22:54)
--- NOTE | 2019-08-24 23:15 | HP ---
CHIEF COMPLAINT: Chest pain PCP: Dr. Kendra Perez, [place] [phone] HISTORY OF PRESENT ILLNESS: 79 year-old female with a PMH significant for HTN, nephrolithiais, dementia, and bipolar disorder. Presented to the ED for evaluation of chest pain which started several hours before arrival. Patient described the pain to the ED staff as substernal, nonradiating, deep, and sharp. She said the pain got better with chest massages and returned after she stopped massaging. She experienced 3-4 episodes of pain, and then it fully resolved. She also noted some hand tingling which she attributed to old age. 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 Smokin+years, quit 2 years ago Alcohol: social Drugs: no Allergies trazodone Allergy (Verified 08/24/19 20:25) Family history: adopted, does not know biological family HOME MEDICATIONS: Home Medications Medication Instructions Recorded Bp Pill 1 tab PO DAILY 08/24/19 Lamotrigine [Lamictal] mg PO DAILY 08/24/19 REVIEW OF SYSTEMS CONSTITUTIONAL: Absent: fever, chills, diaphoresis, generalized weakness, malaise, loss of appetite, weight change HEENT: Absent: rhinorrhea, nasal congestion, throat pain, throat swelling, difficulty swallowing, mouth swelling, ear pain, eye pain, visual changes CARDIOVASCULAR: +chest pain Absent: syncope, palpitations, irregular heart rate, lightheadedness, peripheral edema RESPIRATORY: Absent: cough, shortness of breath, dyspnea with exertion, orthopnea, wheezing, stridor, hemoptysis GASTROINTESTINAL: Absent: abdominal pain, abdominal distension, nausea, vomiting, diarrhea, constipation, melena, hematochezia GENITOURINARY: Absent: dysuria, frequency, urgency, hesitancy, hematuria, flank pain, genital pain MUSCULOSKELETAL: Absent: myalgia, arthralgia, joint swelling, back pain, neck pain SKIN: Absent: rash, itching, pallor HEMATOLOGIC/IMMUNOLOGIC: Absent: easy bleeding, easy bruising, lymphadenopathy, frequent infections ENDOCRINE: Absent: unexplained weight gain, unexplained weight loss, heat intolerance, cold intolerance NEUROLOGIC: Absent: headache, focal weakness or paresthesias, dizziness, unsteady gait, seizure, mental status changes, bladder or bowel incontinence PSYCHIATRIC: Absent: anxiety, depression, suicidal or homicidal ideation, hallucinations. PHYSICAL EXAMINATION Vital Signs - 24 hr 08/24/19 20:23 Temperature 97.9 F Pulse Rate 84 Respiratory 18 Rate Blood Pressure 151/69 O2 Sat by Pulse 98 Oximetry (%) GENERAL: Awake, alert, and fully oriented, in no acute distress. HEAD: Normal with no signs of trauma. EYES: Pupils equal, round and reactive to light, extraocular movements intact, sclera anicteric, conjunctiva clear. No lid lag. LUNGS: Breath sounds equal, clear to auscultation bilaterally. No wheezes, and no crackles. No accessory muscle use. HEART: Regular rate and rhythm, S1 and S2 ABDOMEN: Soft, nontender, not distended MUSCULOSKELETAL: Normal range of motion at all joints. No bony deformities or tenderness. No CVA tenderness. UPPER EXTREMITIES: 2+ pulses, warm, well-perfused. No cyanosis. No clubbing. No peripheral edema. LOWER EXTREMITIES: 2+ pulses, warm, well-perfused. No calf tenderness. No peripheral edema. NEUROLOGICAL: Cranial nerves II-XII intact. Normal speech. Normal gait. Laboratory Results - last 24 hr 08/24/19 08/24/19 08/24/19 21:05 21:05 21:05 WBC 7.3 RBC 5.05 Hgb 13.8 Hct 41.7 MCV 82.5 MCH 27.2 MCHC 33.0 RDW 13.4 Plt Count 348 MPV 9.2 Absolute Neuts (auto) 5.0 Neutrophils % 68.4 Lymphocytes % 20.9 Monocytes % 9.6 Eosinophils % 0.4 Basophils % 0.7 PT with INR INR Sodium 137 Potassium 4.6 Chloride 105 Carbon Dioxide 28 Anion Gap 4 L BUN 25.0 H Creatinine 0.8 Est GFR (CKD-EPI)AfAm 80.70 Est GFR (CKD-EPI)NonAf 69.63 Random Glucose 102 Calcium 8.8 Magnesium 2.5 H Total Bilirubin 0.4 AST 26 ALT 23 Alkaline Phosphatase 70 Creatine Kinase 59 Troponin I < 0.03 Total Protein 6.7 Albumin 4.1 08/24/19 21:05 WBC RBC Hgb Hct MCV MCH MCHC RDW Plt Count MPV Absolute Neuts (auto) Neutrophils % Lymphocytes % Monocytes % Eosinophils % Basophils % PT with INR 11.0 INR 0.98 Sodium Potassium Chloride Carbon Dioxide Anion Gap BUN Creatinine Est GFR (CKD-EPI)AfAm Est GFR (CKD-EPI)NonAf Random Glucose Calcium Magnesium Total Bilirubin AST ALT Alkaline Phosphatase Creatine Kinase Troponin I Total Protein Albumin ASSESSMENT/PLAN: 79 year-old female with a PMH significant for HTN, nephrolithiais, dementia, and depress/anxiety. Placed on observation for chest pain. Chest pain --troponin neg x 1, two pending --ECG: new TWI V1, V2 --start ASA --BNP, TSH, CXR pending --echo in am --stress tomorrow --telemetry monitoring --cardiology consult Hypertension --BP is stable and at baseline when compared to previous visits --will verify home meds in am Nephrolithiasis --no acute issues --renal function stable Dementia Bipolar disorder --need to verify home meds FEN Fluids: PO intake adequate Electrolytes: replete as indicated Nutrition: low sodium; NPO after midnight for possible stress tomorrow DVT prophylaxis: subq lovenox Dispo: continues to require observation. Full code. Visit type - Emergency Visit Emergency Visit: Yes ED Registration Date: 08/24/19 Care time: The patient presented to the Emergency Department on the above date and was hospitalized for further evaluation of their emergent condition. - New Patient This patient is new to me today: Yes Date on this admission: 08/25/19 - Critical Care Critical Care patient: No
[2019-08-25 01:07] VITALS: BMI 18.3
[2019-08-25 08:08] LABS: BASO % 0.6 % (0-2.0); EOS % 1.1 % (0-4.5); HEMATOCRIT 40.4 % (32.4-45.2); HEMOGLOBIN 13.2 GM/dl (10.7-15.3); LYMPH % 26.2 % (8-40); MCH 26.8 pg (25.7-33.7); MCHC 32.6 g/dl (32.0-36.0); MEAN CELL VOLUME 82.3 fl (80-96); MEAN PLT VOLUME 8.9 fl (7.5-11.1); NEUT % 59.1 % (42.8-82.8); PLATELET COUNT 320 K/MM3 (134-434); RBC 4.91 M/mm3 (3.60-5.2); RDW 13.4 % (11.6-15.6); WHITE BLOOD COUNT 6.3 K/mm3 (4.0-10.8)
[2019-08-25 08:16] LABS: ALBUMIN 3.8 g/dl (3.4-5.0); BILIRUBIN,TOTAL 0.5 mg/dl (0.2-1); CALCIUM 8.6 mg/dl (8.5-10); CREATININE 0.7 mg/dl (0.55-1.3); MAGNESIUM 2.4 mg/dL (1.8-2.4); POTASSIUM 3.5 mmol/L (3.5-5.1); TOT PROT 6.2 g/dl (6.4-8.2)
[2019-08-25] MEDS ORDERED: clonazePAM 0.5 MG TABLET PO PRN (08:34)
[2019-08-25] MEDS ORDERED: ENOXAPARIN NA (PORCINE) 40 MG/0.4 ML DISP.SYRIN SQ SCH (10:00)
[2019-08-25] MEDS ORDERED: lamoTRIgine 25 MG TABLET PO SCH (10:00)
[2019-08-25] MEDS ORDERED: GABAPENTIN 100 MG CAPSULE (FP) PO SCH (10:00)
[2019-08-25] MEDS ORDERED: ASPIRIN COATED 81 MG TABLET.EC PO SCH (10:00)
[2019-08-25] MEDS ORDERED: amLODIPine BESYLATE 5 MG TABLET (FP) PO SCH (10:00)
[2019-08-25 10:39] LABS: N-TERMINAL BNP 136.2 pg/ml (5-450)
[2019-08-25] MEDS ORDERED: FLU VACCINE QUAD 60 MCG/0.5 ML (MDV 19-20) IM ONE (11:00)
[2019-08-25 14:12] VITALS: BP 127/49; PULSE 82; TEMP 98.1
--- NOTE | 2019-08-25 14:16 | EKG ---
Test Reason : Blood Pressure : / mmHG Vent. Rate : 077 BPM Atrial Rate : 077 BPM P-R Int : 112 ms QRS Dur : 066 ms QT Int : 398 ms P-R-T Axes : 000 -06 059 degrees QTc Int : 450 ms NORMAL SINUS RHYTHM ABNORMAL ECG WHEN COMPARED WITH ECG OF 24-AUG-2019 20:36, PREMATURE VENTRICULAR COMPLEXES ARE NO LONGER PRESENT QUESTIONABLE CHANGE IN INITIAL FORCES OF SEPTAL LEADS Confirmed by JA CAMERON, RADHA ([id number]) on 08/25/2019 2:16:39 PM Referred By: Confirmed By:RADHA PERES MD
--- NOTE | 2019-08-25 14:17 | EKG ---
Test Reason : Blood Pressure : / mmHG Vent. Rate : 095 BPM Atrial Rate : 095 BPM P-R Int : 152 ms QRS Dur : 064 ms QT Int : 378 ms P-R-T Axes : 000 -13 055 degrees QTc Int : 475 ms SINUS RHYTHM CANNOT RULE OUT SEPTAL INFARCT , AGE UNDETERMINED ABNORMAL ECG Confirmed by RADHA PERES MD ([id number]) on 08/25/2019 2:17:38 PM Referred By: DR CLARKE Confirmed By:RADHA PERES MD
--- NOTE | 2019-08-25 14:19 | DS ---
Physical Exam: SUBJECTIVE: Patient seen and examined. Patient denies chest pain of any kind. Denies palpitations, SOB, SANCHEZ, orthopnea, lower extremity edema. Patient does not recall having chest pain yesterday or at any time in the recent past. She acknowledges she has short term memory problems. Insists she is feeling quite well. OBJECTIVE: Vital Signs Period Temp Pulse Resp BP Sys/Arthur Pulse Ox Last 24 Hr 97.6 F-98.1 F 65-84 17-18 116-166/49-82 96-99 PHYSICAL EXAM GENERAL: The patient is awake, alert, and fully oriented to person, place, knows month and year. LUNGS: Breath sounds equal, clear to auscultation bilaterally, no wheezes, no crackles, no accessory muscle use. HEART: Regular rate and rhythm, S1, S2 ABDOMEN: Soft, nontender, nondistended EXTREMITIES: 2+ pulses, warm, well-perfused, no edema. NEUROLOGICAL: Cranial nerves II through XII grossly intact. Normal speech, steady gait Laboratory Results - last 24 hr 08/24/19 08/24/19 08/24/19 21:05 21:05 21:05 WBC 7.3 RBC 5.05 Hgb 13.8 Hct 41.7 MCV 82.5 MCH 27.2 MCHC 33.0 RDW 13.4 Plt Count 348 MPV 9.2 Absolute Neuts (auto) 5.0 Neutrophils % 68.4 Lymphocytes % 20.9 Monocytes % 9.6 Eosinophils % 0.4 Basophils % 0.7 PT with INR INR PTT (Actin FS) Sodium 137 Potassium 4.6 Chloride 105 Carbon Dioxide 28 Anion Gap 4 L BUN 25.0 H Creatinine 0.8 Est GFR (CKD-EPI)AfAm 80.70 Est GFR (CKD-EPI)NonAf 69.63 POC Glucometer Random Glucose 102 Calcium 8.8 Magnesium 2.5 H Total Bilirubin 0.4 AST 26 ALT 23 Alkaline Phosphatase 70 Creatine Kinase 59 Troponin I < 0.03 B-Natriuretic Peptide Total Protein 6.7 Albumin 4.1 Lipase TSH 08/24/19 08/25/19 08/25/19 21:05 02:30 07:00 WBC 6.3 RBC 4.91 Hgb 13.2 Hct 40.4 MCV 82.3 MCH 26.8 MCHC 32.6 RDW 13.4 Plt Count 320 MPV 8.9 Absolute Neuts (auto) 3.8 Neutrophils % 59.1 Lymphocytes % 26.2 Monocytes % 13.0 H Eosinophils % 1.1 Basophils % 0.6 PT with INR 11.0 INR 0.98 PTT (Actin FS) Sodium Potassium Chloride Carbon Dioxide Anion Gap BUN Creatinine Est GFR (CKD-EPI)AfAm Est GFR (CKD-EPI)NonAf POC Glucometer Random Glucose Calcium Magnesium Total Bilirubin AST ALT Alkaline Phosphatase Creatine Kinase Troponin I < 0.02 B-Natriuretic Peptide Total Protein Albumin Lipase TSH 08/25/19 08/25/19 08/25/19 07:00 07:00 07:02 WBC RBC Hgb Hct MCV MCH MCHC RDW Plt Count MPV Absolute Neuts (auto) Neutrophils % Lymphocytes % Monocytes % Eosinophils % Basophils % PT with INR INR PTT (Actin FS) 31.6 Sodium 136 Potassium 3.5 Chloride 105 Carbon Dioxide 25 Anion Gap 6 L BUN 21.0 H Creatinine 0.7 Est GFR (CKD-EPI)AfAm 94.84 Est GFR (CKD-EPI)NonAf 81.83 POC Glucometer 89 Random Glucose 90 Calcium 8.6 Magnesium 2.4 Total Bilirubin 0.5 AST 24 ALT 21 Alkaline Phosphatase 57 D Creatine Kinase Troponin I B-Natriuretic Peptide 136.2 Total Protein 6.2 L Albumin 3.8 Lipase 155 TSH 3.69 08/25/19 11:50 WBC RBC Hgb Hct MCV MCH MCHC RDW Plt Count MPV Absolute Neuts (auto) Neutrophils % Lymphocytes % Monocytes % Eosinophils % Basophils % PT with INR INR PTT (Actin FS) Sodium Potassium Chloride Carbon Dioxide Anion Gap BUN Creatinine Est GFR (CKD-EPI)AfAm Est GFR (CKD-EPI)NonAf POC Glucometer Random Glucose Calcium Magnesium Total Bilirubin AST ALT Alkaline Phosphatase Creatine Kinase Troponin I < 0.03 B-Natriuretic Peptide Total Protein Albumin Lipase TSH HOSPITAL COURSE: Date of Admission:08/24/19 Date of Discharge: 08/25/19 Pre hospital course 79 year-old female with a PMH significant for HTN, nephrolithiais, dementia, and bipolar disorder. Presented to the ED for evaluation of chest pain which started several hours before arrival. Patient described the pain to the ED staff as substernal, nonradiating, deep, and sharp. She said the pain got better with chest massages and returned after she stopped massaging. She experienced 3-4 episodes of pain, and then it fully resolved. She also noted some hand tingling which she attributed to old age. ER course (1) Mg 2.5 Subsequent hospital course 79 year-old female with a PMH significant for HTN, nephrolithiais, dementia, and depress/anxiety. Placed on observation for chest pain. Chest pain --on presentation to ED patient complained of chest pain, today does not recall having chest pain yesterday and denies all cardiac symptoms --ECG showed minor TWI V1, V2 --troponins were negative x 3 --had a negative Lexiscan stress on 02/24/19 with an EF 75%; echo on 03/07 showed normal LV, normal RV, trace MR; mild TR; small to moderate pericardial effusion without hemodynamic compromise --also had normal nuclear stress tests in 2013, 2015 --no events on telemetry --seen and evaluated by cardiology, no further workup indicated --continued ASA Hypertension --continued home dose amlodipine Nephrolithiasis --no acute issues --renal function stable Dementia Bipolar disorder --continued lamotrigine, Klonopin Minutes to complete discharge: 35 Discharge Summary Problems reviewed: Yes Reason For Visit: CHEST PAIN Condition: Improved - Instructions Diet, Activity, Other Instructions: You should follow up with your plier worker, Dr. Pérez, within 1-2 weeks of your discharge. Return to the emergency department for any new or worsening symptoms. Referrals: Kendra Perez [Primary Care Provider] - 1 Week Dillon Pérez MD [Staff Physician] - 1 Week Disposition: [facility] - Home Medications Comprehensive Discharge Medication List: Ambulatory Orders Bp Pill 1 tab PO DAILY 08/24/19 Lamotrigine [Lamictal] mg PO DAILY 08/24/19 This patient is new to me today: No Emergency Visit: Yes ED Registration Date: 08/24/19 Care time: The patient presented to the Emergency Department on the above date and was hospitalized for further evaluation of their emergent condition. Critical Care patient: No - Discharge Referral Referred to [facility] No
--- NOTE | 2019-08-25 16:23 | CON.CARD ---
Cardiology Consult (text) - Consultation Consultation Note: cc: cp hpi: 79 f hx htn, anxiety, here with cp. For past several weeks pt has had mild, central, sharp chest pain. Non radiating, no associated sxs. Occurs intermittently with rest or exertion, resolves quickly. Better when rubbed chest. Has not had any cp in past few days. No sob palps dizzy loc pnd orthopnea le edema. pmh: per hpi psh: appendectomy social: ex tob fam: no premature cad, scd ros: per hpi; all others nl meds: Home Medications Medication Instructions Recorded Lamotrigine [Lamictal] 25 mg PO BID 08/24/19 Amlodipine Besylate 5 mg PO DAILY 08/25/19 Aspirin [Ecotrin] 81 mg PO DAILY 08/25/19 Gabapentin 100 mg PO HS 08/25/19 clonazePAM [Klonopin -] 0.5 mg PO HS PRN MDD 0.5 08/25/19 pe: Vital Signs Period Temp Pulse Resp BP Sys/Arthur Pulse Ox Last 24 Hr 97.6 F-98.1 F 65-84 17-18 116-166/49-82 96-99 nad no jvd rrr s1s2 no mrg ctabl nl eff aao3 no le e/c/c abd nt nd pos bs no jaundice diaphoresis pos dp pt no carotid bruits Laboratory Last Values WBC 6.3 K/mm3 (4.0-10.8) 08/25/19 07:00 RBC 4.91 M/mm3 (3.60-5.2) 08/25/19 07:00 Hgb 13.2 GM/dl (10.7-15.3) 08/25/19 07:00 Hct 40.4 % (32.4-45.2) 08/25/19 07:00 MCV 82.3 fl (80-96) 08/25/19 07:00 MCH 26.8 pg (25.7-33.7) 08/25/19 07:00 MCHC 32.6 g/dl (32.0-36.0) 08/25/19 07:00 RDW 13.4 % (11.6-15.6) 08/25/19 07:00 Plt Count 320 K/MM3 (134-434) 08/25/19 07:00 MPV 8.9 fl (7.5-11.1) 08/25/19 07:00 Absolute Neuts (auto) 3.8 K/mm3 08/25/19 07:00 Neutrophils % 59.1 % (42.8-82.8) 08/25/19 07:00 Lymphocytes % 26.2 % (8-40) 08/25/19 07:00 Monocytes % 13.0 % (3.8-10.2) H 08/25/19 07:00 Eosinophils % 1.1 % (0-4.5) 08/25/19 07:00 Basophils % 0.6 % (0-2.0) 08/25/19 07:00 PT with INR 11.0 SEC (10.2-13.0) 08/24/19 21:05 INR 0.98 (0.82-1.09) 08/24/19 21:05 PTT (Actin FS) 31.6 SECONDS (25.2-36.5) 08/25/19 07:00 Sodium 136 mmol/L (136-145) 08/25/19 07:00 Potassium 3.5 mmol/L (3.5-5.1) 08/25/19 07:00 Chloride 105 mmol/L (98-107) 08/25/19 07:00 Carbon Dioxide 25 mmol/L (21-32) 08/25/19 07:00 Anion Gap 6 MMOL/L (8-16) L 08/25/19 07:00 BUN 21.0 mg/dl (7-18) H 08/25/19 07:00 Creatinine 0.7 mg/dl (0.55-1.3) 08/25/19 07:00 Est GFR (CKD-EPI)AfAm 94.84 08/25/19 07:00 Est GFR (CKD-EPI)NonAf 81.83 08/25/19 07:00 POC Glucometer 89 UNITS (80-120) 08/25/19 07:02 Random Glucose 90 mg/dl (74-106) 08/25/19 07:00 Calcium 8.6 mg/dl (8.5-10) 08/25/19 07:00 Magnesium 2.4 mg/dL (1.8-2.4) 08/25/19 07:00 Total Bilirubin 0.5 mg/dl (0.2-1) 08/25/19 07:00 AST 24 U/L (15-37) 08/25/19 07:00 ALT 21 U/L (13-61) 08/25/19 07:00 Alkaline Phosphatase 57 U/L (45-117) D 08/25/19 07:00 Creatine Kinase 59 U/L (26-192) 08/24/19 21:05 Troponin I < 0.03 ng/ml (0.00-0.05) 08/25/19 11:50 B-Natriuretic Peptide 136.2 pg/ml (5-450) 08/25/19 07:00 Total Protein 6.2 g/dl (6.4-8.2) L 08/25/19 07:00 Albumin 3.8 g/dl (3.4-5.0) 08/25/19 07:00 Lipase 155 U/L (73-393) 08/25/19 07:00 TSH 3.69 uIU/ml (0.358-3.74) 08/25/19 07:00 tele: sr ecg: sr nl intervals no ischemic changes a/p: 79 f hx htn, anxiety, here with cp. cp: -atypical cp, resolved now. seemed msk. -no signs acs, trops negx3, ecg unremarkable -pt had normal nuclear stress tests in 2013, 2015, and 02/2019 and also had unremarkable echo 02/2019. no further cardiac testing needed at this time htn: -cont home med cardiac rubio stable for dc
== END 2019-08-25 17:25 | disposition home or self-care (01) ==
LOC: FER 20:23 → FM/S 23:30 → INTOOBSV 08-25 00:12 → UNDOADMOB 08-25 00:12 → FM/S 08-25 00:50
PROVIDERS: ADMIT Internal Medicine; ATTEND Nurse Practitioner Acute Care
DX: R07.89 Other chest pain (principal); I31.3 Pericardial effusion (noninflammatory); I10 Essential (primary) hypertension; F03.90 Unspecified dementia, unspecified severity, without behavioral disturbance, psychotic disturbance, mood disturbance, and anxiety; F31.9 Bipolar disorder, unspecified; F41.9 Anxiety disorder, unspecified
CPT/HCPCS: 36415; 71046-TC-FY; 80053; 82550; 82962; 83690; 83735; 83880; 84443; 84484; 85025; 85610; 85730; 93005; 99285-25; G0378